=== PATIENT | male | born 1945 | race Caucasian/White ===

== ENCOUNTER 2024-05-07 07:55 | Emergency (ER) | payer MEDICARE ==
--- NOTE | 2024-05-07 08:03 | ERPHSYRPT ---
- History of Present Illness Time Seen by Provider: 05/07/24 07:55 Source: EMS, old records Exam Limitations: clinical condition Physician History: This is an 78-year-old white male patient of Dr. Gamez who presents to the emergency department by the paramedics. Patient was found down this morning approximately 7 AM. It is unknown the amount of time the patient was down. He was having agonal type breathing and was orotracheally intubated/RSI in the field with a 7.5 ET tube and 21 at the lips. Family reports that the patient stopped his medications over a year ago. His blood sugar at the scene was over 400. Patient has had a history of hemorrhagic stroke in the past. Patient is at least a diabetic. Patient arrives to the emergency department orotracheally intubated and systolic blood pressure of 106 mmHg. He is unresponsive. Timing/Duration: today Activities at Onset: other (Unknown) Severity of Dyspnea-Max: severe Severity of Dyspnea-Current: severe Possible Cause: no prior episodes Modifying Factors: Improves With: other (Unknown) Associated Symptoms: denies symptoms (Patient unresponsive) Allergies/Adverse Reactions: No Known Drug Allergies Allergy (Unverified 05/07/24 08:17) Home Medications: No Reportable Medications [No Reported Medications] 05/07/24 [History] Travel Risk - International Travel Have you traveled outside of the country in past 3 weeks: No - Emerging Infectious Disease Are you exhibiting symptoms associated with any current EIDs: No - Review of Systems Constitutional: Other (Patient unresponsive) Eyes: Other (Patient unresponsive) Respiratory: No Symptoms, Other (Patient unresponsive) Cardiac: Other (Patient unresponsive) Abdominal/Gastrointestinal: Other (Patient unresponsive) Genitourinary Symptoms: Other (Patient unresponsive) Musculoskeletal: Other (Patient unresponsive) Skin: Other (Patient unresponsive) Neurological: Other (Patient unresponsive) Psychological: Other (Patient unresponsive) Endocrine: Other (Patient unresponsive) Hematologic/Lymphatic: Other (Patient unresponsive) Immunological/Allergic: Other (Patient unresponsive) All Other Systems: Unable due to condition - Past Medical History Pertinent Past Medical History: Yes (Unable to determine ) - Nursing Vital Signs Nursing Vital Signs: Initial Vital Signs Temperature 97.5 F 05/07/24 07:55 Pulse Rate 111 H 05/07/24 07:55 Respiratory Rate 15 05/07/24 07:55 Blood Pressure 106/70 05/07/24 07:55 O2 Sat by Pulse Oximetry 98 05/07/24 07:55 Pain Scale Pain Intensity 0 - Physical Exam General Appearance: thin, other (Responsive and orotracheally intubated) Eye Exam: other (Equal. Not reactive. Patient orotracheally intubated and given paralytic medication) Neck Exam: normal inspection (Externally), other (Patient orotracheally intubated) Respiratory Exam: normal breath sounds (Orotracheally intubated), lungs clear (Orotracheally intubated), other (Unable to determine anything else at this point) Cardiovascular/Chest Exam: tachycardia (Mild) Abdominal/Gastrointestinal Exam: soft, normal bowel sounds, other (Patient sedated orotracheally intubated) Rectal Exam: not done Extremity Exam: normal inspection, pelvis stable Neurologic Exam: other (Patient sedated, paralyzed and orotracheally intubated) SpO2 Interpretation: ABG ordered, airway management int. O2 Delivery: Ambu-Bag (Patient orotracheally intubated upon arrival.) - Course Nursing assessment & vital signs reviewed: Yes Ordered Tests: Active Orders 24 hr Category Date Time Status Catheter-[place] STAT Care 05/07/24 08:04 Active EKG-ER Only STAT Care 05/07/24 08:04 Active IV Insertion STAT Care 05/07/24 08:04 Active NPO (ED) STAT Care 05/07/24 08:04 Active Pulse Oximetry (ED) STAT Care 05/07/24 08:04 Active CHEST 1 VIEW (PORTABLE) Stat Exams 05/07/24 08:04 Completed HEAD WITHOUT CONTRAST [CT] Stat Exams 05/07/24 08:05 Completed ABG [ARTERIAL BLOOD GASES] Routine Lab 05/07/24 08:56 Results CBC W DIFF Stat Lab 05/07/24 08:10 Completed CMP Stat Lab 05/07/24 08:10 Completed CULTURE,URINE Stat Lab 05/07/24 08:30 Received PROTIME WITH INR Stat Lab 05/07/24 08:10 Completed TROPONIN Q4H Lab 05/07/24 08:10 Completed TROPONIN Q4H Lab 05/07/24 12:15 Ordered TROPONIN Q4H Lab 05/07/24 16:15 Ordered TROPONIN Q4H Lab 05/07/24 20:15 Ordered UA W/RFX UR CULTURE Stat Lab 05/07/24 08:30 Completed Intubate Patient STAT RT 05/07/24 09:43 Completed Standby STAT RT 05/07/24 09:42 Completed Ventilator Management STAT RT 05/07/24 09:42 Completed Medication Summary Generic Name Dose Route Start Last Admin Trade Name Irvingq PRN Reason Stop Dose Admin Sodium Chloride 1,000 mls @ 100 mls/hr 05/07/24 08:15 05/07/24 08:22 Sodium Chloride 0.9% 1000 Ml IV 06/06/24 08:14 100 mls/hr .Q10H HANS Administration Midazolam HCl 50 mg/ Sodium 250 mls @ 10.563 mls/hr 05/07/24 09:23 05/07/24 09:32 Chloride IV 06/06/24 09:22 0.02 mg/kg/hr .[id number] PRN 10 mls/hr SEDATION Administration Protocol 0.025 MG/KG/HR Discontinued Medications Generic Name Dose Route Start Last Admin Trade Name Keith PRN Reason Stop Dose Admin Enoxaparin Sodium 80 mg 05/07/24 09:11 05/07/24 09:22 Enoxaparin Sodium 80 Mg/0.8 Ml Syringe SQ 05/07/24 09:12 80 mg STAT ONE Administration Enoxaparin Sodium Confirm 05/07/24 09:18 Enoxaparin Sodium 80 Mg/0.8 Ml Syringe Administered 05/07/24 09:19 Dose 80 mg SQ .STK-MED ONE Sodium Chloride Confirm 05/07/24 09:20 Sodium Chloride 0.9% 250 Ml Administered 05/07/24 09:21 Dose 250 mls @ ud IV .STK-MED ONE Midazolam HCl 50 mg/ Sodium 250 mls @ ud 05/07/24 09:30 Chloride IV 05/07/24 09:31 .STK-MED ONE Insulin Human Regular 10 unit 05/07/24 09:05 05/07/24 09:21 Insulin Regular, Human 1 Unit IV 05/07/24 09:06 10 unit STAT ONE Administration Insulin Human Regular Confirm 05/07/24 09:18 Insulin Regular, Human 1 Unit Administered 05/07/24 09:19 Dose 10 unit .ROUTE .STK-MED ONE Midazolam HCl Confirm 05/07/24 09:19 Midazolam Hcl 5 Mg/5 Ml Vial Administered 05/07/24 09:20 Dose 5 mg .ROUTE .STK-MED ONE Midazolam HCl Confirm 05/07/24 09:20 Midazolam Hcl 50 Mg/10 Ml Vial Administered 05/07/24 09:21 Dose 50 mg .ROUTE .STK-MED ONE Midazolam HCl 5 mg 05/07/24 09:26 05/07/24 09:27 Midazolam Hcl 5 Mg/5 Ml Vial IV 05/07/24 09:27 5 mg STAT ONE Administration Pantoprazole Sodium 40 mg 05/07/24 08:11 05/07/24 08:22 Pantoprazole 40 Mg Vial IV 05/07/24 08:12 40 mg STAT ONE Administration Pantoprazole Sodium Confirm 05/07/24 08:21 Pantoprazole 40 Mg Vial Administered 05/07/24 08:22 Dose 40 mg IV .STK-MED ONE Lab/Rad Data: Laboratory Result Diagrams 05/07/24 08:10 05/07/24 08:10 Laboratory Results 05/07/24 05/07/24 05/07/24 Range/Units 08:56 08:30 08:10 WBC (4.23-9.07) x10^3/uL RBC (4.63-6.08) x10^6/uL Hgb (13.7-17.5) g/dL Hct (40.1-51.0) % MCV (79.0-92.2) fL MCH (25.7-32.2) pg MCHC (32.3-36.5) g/dL RDW (11.6-14.4) % Plt Count (163-337) x10^3/uL MPV (9.4-12.4) fL Gran % (34.0-67.9) % Immature Gran % (Auto) (0.001-0.429) % Nucleat RBC Rel Count (0.00-0.2) % Eos # (Auto) (0.04-0.54) x10^3/uL Immature Gran # (Auto) (0.001-0.031) x10^3u/L Absolute Lymphs (auto) (1.32-3.57) x10^3/uL Absolute Monos (auto) (0.30-0.82) x10^3/uL Absolute Nucleated RBC (0.00-0.012) x10^3u/L Lymphocytes % (21.8-53.1) % Monocytes % (5.3-12.2) % Eosinophils % (0.8-7.0) % Basophils % (0.2-1.2) % Absolute Granulocytes (1.78-5.38) x10^3/uL Basophils # (0.01-0.08) x10^3/uL PT (9.4-12.5) SECONDS INR (0.8-3.0) Puncture Site Pending pCO2 45 (35-45) mmHg pO2 165 H* (75-100) mmHg Base Excess -3.1 L (-2.0-2.0) O2 Saturation 98.2 (94-100) g/dF ABG pH 7.32 L (7.35-7.45) ABG HCO3 23.2 (22-28) ABG O2 Sat (Measured) 100.0 (95-100) % Luis E Test Pending A-a Gradient 492 a/A Ratio 0.25 Hemoglobin 14.1 Carboxyhemoglobin 0.9 (0.0-6.9) % THgb Methemoglobin 0.9 L (1.4-1.5) % Temperature 37.0 C POC O2 Flow Rate 100 % Sodium (135-145) mmol/L Potassium 4.2 (3.5-5.1) mmol/L Chloride (98-107) mmol/L Carbon Dioxide (22-30) mmol/L Anion Gap (5-15) MEQ/L BUN (9-20) mg/dL Creatinine (0.66-1.25) mg/dL Estimated GFR ML/MIN Glucose (74-106) mg/dL Calcium (8.4-10.2) mg/dL Total Bilirubin (0.2-1.3) mg/dL AST (17-59) U/L ALT (0-50) U/L Alkaline Phosphatase (38-126) U/L Ammonia (9-30) umol/L Troponin I 0.082 H* (0.000-0.033) ng/mL Serum Total Protein (6.3-8.2) g/dL Albumin (3.5-5.0) g/dL Urine Color Yellow (Yellow) Urine Appearance Clear (Clear) Urine pH 5.5 (4.6-8.0) Ur Specific [place] 1.020 (1.005-1.030) Urine Protein 100 A (Negative) Urine Glucose (UA) >=1000 A (Negative) mg/dL Urine Ketones Negative (Negative) Urine Blood Moderate A (Negative) Urine Nitrite Negative (Negative) Urine Bilirubin Negative (Negative) Urine Urobilinogen 0.2 (0.2) mg/dL Ur Leukocyte Esterase Negative (Negative) U Hyaline Cast (Auto) 3-5 A (0-2) /LPF Urine Microscopic RBC 11-20 A (0-5) /HPF Urine Microscopic WBC 3-5 (0-5) /HPF Ur Epithelial Cells None Seen (None Seen) /HPF Urine Bacteria None Seen (None Seen) /HPF Urine Culture Reflexed ORDERED SEPARATELY (NO) 05/07/24 05/07/24 05/07/24 Range/Units 08:10 08:10 08:10 WBC 12.4 H (4.23-9.07) x10^3/uL RBC 4.15 L (4.63-6.08) x10^6/uL Hgb 13.2 L (13.7-17.5) g/dL Hct 40.1 (40.1-51.0) % MCV 96.6 H (79.0-92.2) fL MCH 31.8 (25.7-32.2) pg MCHC 32.9 (32.3-36.5) g/dL RDW 13.1 (11.6-14.4) % Plt Count 156 L (163-337) x10^3/uL MPV 10.5 (9.4-12.4) fL Gran % 69.5 H (34.0-67.9) % Immature Gran % (Auto) 0.6 H (0.001-0.429) % Nucleat RBC Rel Count 0.0 (0.00-0.2) % Eos # (Auto) 0.18 (0.04-0.54) x10^3/uL Immature Gran # (Auto) 0.08 H (0.001-0.031) x10^3u/L Absolute Lymphs (auto) 2.47 (1.32-3.57) x10^3/uL Absolute Monos (auto) 1.01 H (0.30-0.82) x10^3/uL Absolute Nucleated RBC 0.00 (0.00-0.012) x10^3u/L Lymphocytes % 20.0 L (21.8-53.1) % Monocytes % 8.2 (5.3-12.2) % Eosinophils % 1.5 (0.8-7.0) % Basophils % 0.2 (0.2-1.2) % Absolute Granulocytes 8.62 H (1.78-5.38) x10^3/uL Basophils # 0.02 (0.01-0.08) x10^3/uL PT 11.3 (9.4-12.5) SECONDS INR 1.04 (0.8-3.0) Puncture Site pCO2 (35-45) mmHg pO2 (75-100) mmHg Base Excess (-2.0-2.0) O2 Saturation (94-100) g/dF ABG pH (7.35-7.45) ABG HCO3 (22-28) ABG O2 Sat (Measured) (95-100) % Luis E Test A-a Gradient a/A Ratio Hemoglobin Carboxyhemoglobin (0.0-6.9) % THgb Methemoglobin (1.4-1.5) % Temperature C POC O2 Flow Rate % Sodium 140 (135-145) mmol/L Potassium 4.6 (3.5-5.1) mmol/L Chloride 107 (98-107) mmol/L Carbon Dioxide 21 L (22-30) mmol/L Anion Gap 17.2 H (5-15) MEQ/L BUN 23 H (9-20) mg/dL Creatinine 1.74 H (0.66-1.25) mg/dL Estimated GFR 39.1 ML/MIN Glucose 398 H (74-106) mg/dL Calcium 8.5 (8.4-10.2) mg/dL Total Bilirubin 0.60 (0.2-1.3) mg/dL AST 55 (17-59) U/L ALT 34 (0-50) U/L Alkaline Phosphatase 85 (38-126) U/L Ammonia (9-30) umol/L Troponin I (0.000-0.033) ng/mL Serum Total Protein 6.6 (6.3-8.2) g/dL Albumin 3.7 (3.5-5.0) g/dL Urine Color (Yellow) Urine Appearance (Clear) Urine pH (4.6-8.0) Ur Specific [place] (1.005-1.030) Urine Protein (Negative) Urine Glucose (UA) (Negative) mg/dL Urine Ketones (Negative) Urine Blood (Negative) Urine Nitrite (Negative) Urine Bilirubin (Negative) Urine Urobilinogen (0.2) mg/dL Ur Leukocyte Esterase (Negative) U Hyaline Cast (Auto) (0-2) /LPF Urine Microscopic RBC (0-5) /HPF Urine Microscopic WBC (0-5) /HPF Ur Epithelial Cells (None Seen) /HPF Urine Bacteria (None Seen) /HPF Urine Culture Reflexed (NO) 05/07/24 Range/Units 08:01 WBC (4.23-9.07) x10^3/uL RBC (4.63-6.08) x10^6/uL Hgb (13.7-17.5) g/dL Hct (40.1-51.0) % MCV (79.0-92.2) fL MCH (25.7-32.2) pg MCHC (32.3-36.5) g/dL RDW (11.6-14.4) % Plt Count (163-337) x10^3/uL MPV (9.4-12.4) fL Gran % (34.0-67.9) % Immature Gran % (Auto) (0.001-0.429) % Nucleat RBC Rel Count (0.00-0.2) % Eos # (Auto) (0.04-0.54) x10^3/uL Immature Gran # (Auto) (0.001-0.031) x10^3u/L Absolute Lymphs (auto) (1.32-3.57) x10^3/uL Absolute Monos (auto) (0.30-0.82) x10^3/uL Absolute Nucleated RBC (0.00-0.012) x10^3u/L Lymphocytes % (21.8-53.1) % Monocytes % (5.3-12.2) % Eosinophils % (0.8-7.0) % Basophils % (0.2-1.2) % Absolute Granulocytes (1.78-5.38) x10^3/uL Basophils # (0.01-0.08) x10^3/uL PT (9.4-12.5) SECONDS INR (0.8-3.0) Puncture Site pCO2 (35-45) mmHg pO2 (75-100) mmHg Base Excess (-2.0-2.0) O2 Saturation (94-100) g/dF ABG pH (7.35-7.45) ABG HCO3 (22-28) ABG O2 Sat (Measured) (95-100) % Luis E Test A-a Gradient a/A Ratio Hemoglobin Carboxyhemoglobin (0.0-6.9) % THgb Methemoglobin (1.4-1.5) % Temperature C POC O2 Flow Rate % Sodium (135-145) mmol/L Potassium (3.5-5.1) mmol/L Chloride (98-107) mmol/L Carbon Dioxide (22-30) mmol/L Anion Gap (5-15) MEQ/L BUN (9-20) mg/dL Creatinine (0.66-1.25) mg/dL Estimated GFR ML/MIN Glucose (74-106) mg/dL Calcium (8.4-10.2) mg/dL Total Bilirubin (0.2-1.3) mg/dL AST (17-59) U/L ALT (0-50) U/L Alkaline Phosphatase (38-126) U/L Ammonia < 9 L (9-30) umol/L Troponin I (0.000-0.033) ng/mL Serum Total Protein (6.3-8.2) g/dL Albumin (3.5-5.0) g/dL Urine Color (Yellow) Urine Appearance (Clear) Urine pH (4.6-8.0) Ur Specific [place] (1.005-1.030) Urine Protein (Negative) Urine Glucose (UA) (Negative) mg/dL Urine Ketones (Negative) Urine Blood (Negative) Urine Nitrite (Negative) Urine Bilirubin (Negative) Urine Urobilinogen (0.2) mg/dL Ur Leukocyte Esterase (Negative) U Hyaline Cast (Auto) (0-2) /LPF Urine Microscopic RBC (0-5) /HPF Urine Microscopic WBC (0-5) /HPF Ur Epithelial Cells (None Seen) /HPF Urine Bacteria (None Seen) /HPF Urine Culture Reflexed (NO) - Progress Progress: re-examined, unchanged Air Movement: fair Progress Note: 05/07/24 08:24 My medical decision making and the assignment of high complexity to this patient's medical issue today is based on review of the patient's past medical history, review of the patient's medication list, review the patient drug allergy list, history present illness and physical findings on examination. The workup in this patient includes chest x-ray for ET tube placement, CBC, CMP, twelve-lead EKG, troponin level, urinalysis, ABG and CT scan of the head. In addition I ordered a PT/INR. Differential diagnosis includes but is not limited to hemorrhagic stroke, myocardial infarction, CVAischemic stroke, electrolyte abnormalities, DKA 05/07/24 09:01 This patient's family provided additional, independent history secondary to patient being unresponsive. Patient family/spouse state that this patient is definitely DO NOT RESUSCITATE. They do not want any surgical intervention performed. However, they do say that he is an organ donor. 05/07/24 09:06 The chest x-ray was interpreted by the radiologist and I reviewed the impression. The impression states that tip of the ET tube is 1.5 cm above the junior. There are calcified granulomas and nodules present. There are chronic changes noted. The heart does not appear to be enlarged. CT scan of the head was interpreted by the radiologist and I reviewed the impression. The impression states nonacute senile brain with small remote in farct right naranjo radiata. There is incidental paranasal sinus disease. 05/07/24 10:[address] Gonzalez, the hospitalist at [facility]. I reviewed the patient history as I am aware of, his past medical history as I am aware of, presenting complaint, workup results and told him that the family prefers this patient to be at [facility]. He accepts the patient in transfer. Blood Culture(s) Obtained: No Antibiotics given: No Counseled pt/family regarding: lab results, rad results Medical Desision Making - Independent Historian Additional History obtained from: Spouse, Family - Diagnostic Testing Diagnostic test were ordered, analyzed, and reviewed by me: Yes Radiological Interpretation: Reviewed by me, Teleradiologist Report - Risk of complications The pt has a high risk of morbidity or mortality based on: Decision regarding ho spitilization or escalation of hosp level of care - Departure Departure Disposition: Transfer Clinical Impression: Respiratory arrest, Endotracheally intubated, On mechanically assisted ventilation, Elevated troponin Condition: Critical Critical Care Time: Yes Critical Care Time(excluding separately billable procedures): Critical 30-74 mins (45 minutes) Referrals: RUTH GAMEZ [Primary Care Provider] - Follow up/PCP as directed
[2024-05-07 08:17] VITALS: O2SAT 100
[2024-05-07] MEDS ORDERED: PROTONIX 40 MG IV IV ONE (08:21)
[2024-05-07 08:22] LABS: Absolute Neutrophil Ct (ANC) 8.62 x10^3/uL (1.78-5.38); BASOPHIL % 0.2 % (0.2-1.2); Basophil (Absolute #) 0.02 x10^3/uL (0.01-0.08); Eosinophil % 1.5 % (0.8-7.0); Eosinophil (Absolute #) 0.18 x10^3/uL (0.04-0.54); Hematocrit 40.1 % (40.1-51.0); Hemoglobin 13.2 g/dL (13.7-17.5); IMMATURE GRAN # 0.08 x10^3u/L (0.001-0.031); IMMATURE GRAN % 0.6 % (0.001-0.429); Lymphocyte (Absolute #) 2.47 x10^3/uL (1.32-3.57); Mean Cell Volume 96.6 fL (79.0-92.2); Mean Corpuscular Hemoglobin 31.8 pg (25.7-32.2); Mean Corpuscular Hgb Concent. 32.9 g/dL (32.3-36.5); Mean Platelet Volume 10.5 fL (9.4-12.4); Monocyte (Absolute #) 1.01 x10^3/uL (0.30-0.82); Monocytes % 8.2 % (5.3-12.2); Neutrophil % 69.5 % (34.0-67.9); Platelet Count 156 x10^3/uL (163-337); Red Blood Count 4.15 x10^6/uL (4.63-6.08); Red Cell Distribution Width 13.1 % (11.6-14.4); White Blood Count 12.4 x10^3/uL (4.23-9.07)
[2024-05-07] MEDS: Sodium Chloride 0.9% 1000 ML 1,000 ML IV SCH (08:22)
[2024-05-07] MEDS: PROTONIX 40 MG IV IV ONE (08:22)
[2024-05-07 08:25] LABS: ALBUMIN 3.7 g/dL (3.5-5.0); ANION GAP 17.2 MEQ/L (5-15); BILIRUBIN,TOTAL 0.6 mg/dL (0.2-1.3); Calcium 8.5 mg/dL (8.4-10.2); Creatinine 1 1.74 mg/dL (0.66-1.25); EST GLOMERULAR FILTRATION RATE 39.1 ML/MIN; Potassium 4.6 mmol/L (3.5-5.1); Total Protein 6.6 g/dL (6.3-8.2)
[2024-05-07 08:37] VITALS: TEMP 97.5
[2024-05-07 08:48] LABS: INR 1.04 (0.8-3.0); PROTIME 11.3 SECONDS (9.4-12.5)
[2024-05-07 08:55] LABS: Appearance Clear (Clear); Bacteria None Seen /HPF (None Seen); Bilirubin Negative (Negative); Blood Moderate (Negative); Epithelial Cells None Seen /HPF (None Seen); Glucose, Urine >=1000 mg/dL (Negative); Ketones Negative (Negative); Leukocyte Esterase Negative (Negative); Nitrite Negative (Negative); Ph 5.5 (4.6-8.0); Protein,Urine Dip 100 (Negative); Urobilinogen 0.2 mg/dL (0.2)
[2024-05-07 08:56] LABS: A-aADO2 492; ABG HEMOGLOBIN 14.1; ABG POTASSIUM 4.2 (3.5-5.1); ARTERIAL BLOOD GAS BASE EXCESS -3.1 (-2.0-2.0); ARTERIAL BLOOD GAS FIO2 100 %; ARTERIAL BLOOD GAS PCO2 45 mmHg (35-45); ARTERIAL BLOOD GAS PO2 165 mmHg (75-100); ARTERIAL BLOOD GAS pH 7.32 (7.35-7.45); CARBOXYHEMOGLOBIN 0.9 % THgb (0.0-6.9); HCO3- 23.2 (22-28); HGB O2 SAT 98.2 g/dF (94-100); Methhemoglobin 0.9 % (1.4-1.5); paO2 pAO1 0.25
[2024-05-07 08:57] LABS: ADD URINE CULTURE? ORDERED SEPARATELY (NO)
--- NOTE | 2024-05-07 09:00 | XRAY ---
Indication: Found unresponsive. Multiple contiguous axial images obtained through the head without contrast. Comparison: None Age-appropriate global atrophy with mild periventricular degenerative micro-ischemia. Subcentimeter foci remote infarct right mid naranjo radiata. No acute intracranial hemorrhage, abnormal extra-axial fluid collection, or mass effect. Fourth ventricle is midline without hydrocephalus. Bony calvarium intact. Mild mucosal thickening right maxillary sinus and 8 mm left maxillary sinus polyp/retention cyst. Mastoid air cells are clear. Impression: Nonacute senile brain with small remote infarct right naranjo radiata. Incidental paranasal sinus disease.
--- NOTE | 2024-05-07 09:02 | XRAY ---
Indication: Endotracheal tube placement. Comparison: None Portable chest demonstrates endotracheal tube tip approximately 1.5 cm above junior. Lungs inflated and clear with incidental tiny calcified granulomas. Heart not enlarged with incidental mediastinal/bilateral hilar calcified nodes. Bony thorax intact with osteopenia and degenerative changes.
[2024-05-07] MEDS ORDERED: HUMULIN R ONE (09:18)
[2024-05-07] MEDS ORDERED: ENOXAPARIN SODIUM SQ ONE (09:18)
[2024-05-07] MEDS ORDERED: VERSED 5 MG/5 ML ONE (09:19)
[2024-05-07] MEDS ORDERED: Versed 50 MG/ 10 Ml MDV ONE (09:20)
[2024-05-07] MEDS ORDERED: Sodium Chloride 0.9% 250 ML 250 ML IV ONE (09:20)
[2024-05-07] MEDS: HUMULIN R IV ONE (09:21)
[2024-05-07] MEDS: ENOXAPARIN SODIUM SQ ONE (09:22)
[2024-05-07] MEDS: VERSED 5 MG/5 ML IV ONE (09:27)
[2024-05-07] MEDS ORDERED: Versed 50 MG/ 10 Ml MDV*** 50 MG in Sodium Chloride 0.9% 250 ML 240 ML IV ONE (09:30)
[2024-05-07] MEDS: Versed 50 MG/ 10 Ml MDV*** 50 MG in Sodium Chloride 0.9% 250 ML 240 ML IV PRN (09:32)
[2024-05-07 11:01] VITALS: BP 151/78; PULSE 75; RESP 24
[2024-05-07] MEDS: SUBLIMAZE 100 MCG/2 ML IV ONE (11:10)
[2024-05-07] MEDS ORDERED: SUBLIMAZE 100 MCG/2 ML ONE (11:10)
[2024-05-08 06:08] LABS: ABG SITE RIGHT RADIAL; ALLEN TEST OK? YES
== END 2024-05-07 11:39 | disposition short-term general hospital (02) ==
LOC: EDBD 07:55 → MERGE 07:55 → ED 07:55
DX: R09.2 Respiratory arrest (principal); R77.8 Other specified abnormalities of plasma proteins; Z99.11 Dependence on respirator [ventilator] status; R40.4 Transient alteration of awareness; E11.9 Type 2 diabetes mellitus without complications
CPT/HCPCS: 31500; 36000; 36415; 36600; 51702; 70450; 71045; 80053; 81001; 82140; 82375; 82803; 84484; 85025; 85610; 87086; 93005; 94002; 94760; 94799; 96372; 96374; 96375; 99285; 99291; J1650; J1815; J2250; J3010